=== PATIENT | male | born 1945 | race Two or more races ===

== ENCOUNTER 2018-06-24 10:05 | Day surgery (SDC) | payer BC ==
[~2018-06-24 10:05] MED LIST: LIDOCAINE 2% (SDV) 5 ML INJ; PROPOFOL 200 MG INJ
[2018-06-24] MEDS ORDERED: CEFTRIAXONE 1 GM/NS 50 ML IVPB (11:30)
[2018-06-24 12:03] LABS: ADD UMIC YES; UR ASCORBIC ACID NEGATIVE (NEGATIVE); UR BACTERIA FEW /HPF (NONE SEEN); UR BILIRUBIN (Dip) NEGATIVE (NEGATIVE); UR BLOOD (Dip) 2+ mg/dL (NEGATIVE); UR CLARITY CLOUDY (CLEAR); UR COLOR YELLOW (YELLOW); UR GLUCOSE (Dip) NEGATIVE (NEGATIVE); UR KETONES (Dip) NEGATIVE (NEGATIVE); UR LEUKOCYTE ESTERASE (Dip) 3+ Leu/ul (NEGATIVE); UR MUCUS FEW /HPF (NONE SEEN); UR NITRITE (Dip) POSITIVE (NEGATIVE); UR RBC 15 /HPF (0-5); UR SPECIFIC GRAVITY (Dip) 1.018 (1.003-1.030); UR SQUAMOUS EPITHELIAL CELL FEW /HPF (FEW); UR TOTAL PROTEIN (Dip) 1+ mg/dl (NEGATIVE); UR UROBILINOGEN (Dip) NEGATIVE (NEGATIVE); UR WBC > 182 /HPF (0-5)
[2018-06-24] MEDS ORDERED: BUPIVACAINE 0.5% (SDV) 30 ML INJ (12:10)
[2018-06-24] MEDS ORDERED: FENTAnyl 50 MCG/ML VIAL (12:47)
[2018-06-24] MEDS ORDERED: HYDROmorphONE 1 MG/5 ML IV SYRINGE IV ×2 (13:00)
[2018-06-24] MEDS ORDERED: ONDANSETRON 4 MG INJ IV (13:00)
[2018-06-24] MEDS ORDERED: DIPHENHYDRAMINE 50 MG INJ IV (13:00)
[2018-06-24] MEDS ORDERED: MEPERIDINE 25 MG INJ IV (13:00)
[2018-06-24] MEDS ORDERED: FENTAnyl 50 MCG/ML VIAL IV (13:00)
[2018-06-24] MEDS ORDERED: ALBUTEROL 0.083% (NEB) 2.5 MG/3 ML AMP HHN (13:00)
[2018-06-24] MEDS ORDERED: PHENYLephrine (100 MCG/ML) 5ML SYG (13:06)
[2018-06-24] MEDS: BUPIVACAINE 0.5% (SDV) 30 ML INJ (13:08)
[2018-06-24] MEDS: LIDOCAINE 2% (MDV) 20 ML INJ (13:08)
[2018-06-24] MEDS: FENTAnyl 50 MCG/ML VIAL IV ×2 (14:19→14:29)
[2018-06-24] MEDS: HYDROCODONE/APAP (5/325) TAB PO (14:38)
== END 2018-06-24 16:03 | disposition home or self-care (01) ==
LOC: SDS 10:05
DX: N48.1 Balanitis (principal); N47.1 Phimosis
CPT/HCPCS: 54161; 81001; 87086; 88304